=== PATIENT | male | born 1960 | race Caucasian/White ===

== ENCOUNTER 2020-09-04 17:00 | Emergency (ER) | payer BC, OTHER ==
[~2020-09-04] VITALS: Ht 182.9 cm; Wt 68.0 kg
[2020-09-04] MEDS ORDERED: NITROGLYCERIN 0.4 MG SL TABS BTL 25'S SL PRN (17:15)
[2020-09-04] MEDS ORDERED: ASPIRIN 81 MG CHEW (CHILDREN'S ASA) PO ONE (17:15)
[2020-09-04 17:16] LABS: BASOPHILS # (AUTO) 0.1 10^3/uL (0.0-0.1); BASOPHILS % (AUTO) 1 % (0-10); EOSINOPHILS # (AUTO) 0.2 10^3/uL (0.0-0.3); EOSINOPHILS % (AUTO) 1 % (0-10); HEMATOCRIT 42 % (40-54); HEMOGLOBIN 14.4 G/DL (13.3-17.7); LYMPHOCYTES # (AUTO) 4.3 X 10^3 (1.0-4.0); LYMPHOCYTES % (AUTO) 25 % (12-44); MEAN CORPUSCULAR HEMOGLOBIN 31 PG (25-34); MEAN CORPUSCULAR HGB CONC 35 G/DL (32-36); MEAN CORPUSCULAR VOLUME 90 FL (80-99); MONOCYTES # (AUTO) 2.1 X 10^3 (0.0-1.0); MONOCYTES % (AUTO) 12 % (0-12); NEUTROPHILS # (AUTO) 10.9 X 10^3 (1.8-7.8); NEUTROPHILS % (AUTO) 61 % (42-75); PLATELET COUNT 253 10^3/uL (130-400); WHITE BLOOD COUNT 17.7 10^3/uL (4.3-11.0)
[2020-09-04 17:27] LABS: INR 1.1 (0.8-1.4); PROTHROMBIN TIME PATIENT 14.5 SEC (12.2-14.7)
--- NOTE | 2020-09-04 17:33 | Diagnostic Imaging Report ---
INDICATION: Chest pain. COMPARISON STUDY: None. FINDINGS: Frontal view of the chest demonstrates the lungs to be clear. The heart, mediastinum, pulmonary vascularity and visualized bony thorax are normal. IMPRESSION: Normal chest. Dictated by: Dictated on workstation # [id number]
[2020-09-04 17:34] LABS: ALANINE AMINOTRANSFERASE 25 U/L (0-55); ALKALINE PHOSPHATASE 161 U/L (40-136); BILIRUBIN,TOTAL 0.9 MG/DL (0.1-1.0); BUN/CREATININE RATIO 6; CALCIUM 9.4 MG/DL (8.5-10.1); CARBON DIOXIDE 23 MMOL/L (21-32); CHLORIDE 105 MMOL/L (98-107); CREATININE SERUM 0.97 MG/DL (0.60-1.30); GFR ESTIMATED > 60; GLUCOSE 157 MG/DL (70-105)
[2020-09-04 17:35] LABS: ALBUMIN 3.9 GM/DL (3.2-4.5); LIPASE 3 U/L (8-78); TOTAL PROTEIN 7.1 GM/DL (6.4-8.2)
[2020-09-04 17:43] LABS: POTASSIUM 3.5 MMOL/L (3.6-5.0); SODIUM 140 MMOL/L (135-145)
--- NOTE | 2020-09-04 17:49 | ED Chest Pain ---
General Chief Complaint: Chest Pain Stated Complaint: CHEST PAIN Nursing Triage Note: Patient reports he woke at midnight last night with sharp pain in his mid-chest and left arm. He reports the pain is worse with deep breathing. Nursing Sepsis Screen: No Definite Risk Source: patient History of Present Illness Date Seen by Provider: Sep 04, 2020 Time Seen by Provider: 17:01 Initial Comments 59-year-old male ending with complaints of sharp pain in the middle of his chest going into his arm. He states this has been present since around midnight. He states the pain is worse with deep breaths. He also feels it was worse with laying down. He has a history of chronic pancreatitis but states this feels different. He has not taken any aspirin but did take some Tums which helps slightly. He states he had symptoms somewhat similar to this in the past with a episode of "walking pneumonia". He has not had any nausea or vomiting. He feels a little short of breath. Symptoms were worse when he tried to lay down Sunday came into the ED to be evaluated before coming later. He does not fo llow with any regular provider and does not take any medications on a daily basis. Severity/Quality: moderate Location: substernal, central Radiation: arms (left) Activities at Onset: sleep Prior CP/Workup: no prior chest pain, no prior cardiac workup ASA po RN ALLERGY: No NTG SL RN ALLERGY: No Associated Symptoms: No abdominal pain, No back pain, No diaphoresis, No dizziness, No edema, No fatigue, No fever/chills, No headache; heartburn; No nausea/vomiting, No rash; shortness of breath; No swelling/lump in chest, No syncope Allergies and Home Medications Allergies Coded Allergies: amoxicillin (Verified Allergy, Unknown, 09/04/20) Home Medications Azithromycin 250 Mg Tablet, 250 MG PO DAILY Prescribed by: ZACK MAURER on 09/04/201916 Pantoprazole Sodium 40 Mg Tablet.dr, 40 MG PO DAILY Prescribed by: ZACK MAURER on 09/04/201916 Prednisone 20 Mg Tab, 40 MG PO DAILY Prescribed by: ZACK MAURER on 09/04/201916 Patient Home Medication List Home Medication List Reviewed: Yes Review of Systems Review of Systems Constitutional: No chills, No fever EENTM: No Symptoms Reported Respiratory: See HPI Cardiovascular: See HPI Gastrointestinal: No Symptoms Reported Genitourinary: No Symptoms Reported Musculoskeletal: no symptoms reported Skin: no symptoms reported Psychiatric/Neurological: No Symptoms Reported Endocrine: No Symptoms Reported Hematologic/Lymphatic: Denies Blood Clots Past Eitiifx-Djqwcg-Oyexeg Hx Past Med/Social Hx: Reviewed Nursing Past Med/Soc Hx Patient Social History Alcohol Use: Denies Use Smoking Status: Current Everyday Smoker Type Used: Cigarettes 2nd Hand Smoke Exposure: No Recent Infectious Disease Expo: No Recent Hopitalizations: No Seasonal Allergies Seasonal Allergies: No Past Medical History Surgeries: Yes Appendectomy, Gallbladder Respiratory: No Cardiac: No Neurological: No Genitourinary: No Gastrointestinal: Yes Pancreatitis Musculoskeletal: No Endocrine: No HEENT: No Cancer: No Psychosocial: No Integumentary: No Blood Disorders: No Physical Exam Vital Signs Vital Signs - First Documented 09/04/20 17:06 Temp 37.7 Pulse 89 Resp 23 B/P (MAP) 172/93 (119) Pulse Ox 96 O2 Delivery Room Air Capillary Refill : Less Than 3 Seconds Height, Weight, BMI Height: '" Weight: lbs. oz. kg; 20.00 BMI Method: General Appearance: No Apparent Distress, WD/WN HEENT: Pharynx Normal Neck: Full Range of Motion, Normal Inspection, Non Tender, Supple Respiratory: Chest Non Tender, Lungs Clear, Normal Breath Sounds, No Accessory Muscle Use, No Respiratory Distress Cardiovascular: Regular Rate, Rhythm, Normal Peripheral Pulses Gastrointestinal: Normal Bowel Sounds, No Pulsatile Mass, Non Tender, Soft Rectal: Deferred Extremity: Normal Capillary Refill, Normal Inspection, Normal Range of Motion, Non Tender, No Calf Tenderness, No Pedal Edema Neurologic/Psychiatric: Alert, Oriented x3, computer systems information director II-XII Norm as Tested Skin: Normal Color, Warm/Dry Images 1 - reports pain throughout the center of chest and radiates to left arm but is not worse with palpation. worse with deep breaths Progress/Results/Core Measures Results/Orders Lab Results Laboratory Tests Test 09/04/20 17:10 Range/Units White Blood Count 17.7 H 4.3-11.0 10^3/uL Red Blood Count 4.65 4.35-5.85 10^6/uL Hemoglobin 14.4 13.3-17.7 G/DL Hematocrit 42 40-54 % Mean Corpuscular Volume 90 80-99 FL Mean Corpuscular Hemoglobin 31 25-34 PG Mean Corpuscular Hemoglobin Concent 35 32-36 G/DL Red Cell Distribution Width 12.7 10.0-14.5 % Platelet Count 253 130-400 10^3/uL Mean Platelet Volume 11.0 H 7.4-10.4 FL Immature Granulocyte % (Auto) 1 % Neutrophils (%) (Auto) 61 42-75 % Lymphocytes (%) (Auto) 25 12-44 % Monocytes (%) (Auto) 12 0-12 % Eosinophils (%) (Auto) 1 0-10 % Basophils (%) (Auto) 1 0-10 % Neutrophils # (Auto) 10.9 H 1.8-7.8 X 10^3 Lymphocytes # (Auto) 4.3 H 1.0-4.0 X 10^3 Monocytes # (Auto) 2.1 H 0.0-1.0 X 10^3 Eosinophils # (Auto) 0.2 0.0-0.3 10^3/uL Basophils # (Auto) 0.1 0.0-0.1 10^3/uL Immature Granulocyte # (Auto) 0.1 0.0-0.1 10^3/uL Neutrophils % (Manual) 61 % Lymphocytes % (Manual) 25 % Monocytes % (Manual) 13 % Eosinophils % (Manual) 1 % Prothrombin Time 14.5 12.2-14.7 SEC INR Comment 1.1 0.8-1.4 Activated Partial Thromboplast Time 29 24-35 SEC Sodium Level 140 135-145 MMOL/L Potassium Level 3.5 L 3.6-5.0 MMOL/L Chloride Level 105 98-107 MMOL/L Carbon Dioxide Level 23 21-32 MMOL/L Anion Gap 12 5-14 MMOL/L Blood Urea Nitrogen 6 L 7-18 MG/DL Creatinine 0.97 0.60-1.30 MG/DL Estimat Glomerular Filtration Rate > 60 BUN/Creatinine Ratio 6 Glucose Level 157 H 70-105 MG/DL Calcium Level 9.4 8.5-10.1 MG/DL Corrected Calcium 9.5 8.5-10.1 MG/DL Magnesium Level 2.0 1.6-2.4 MG/DL Total Bilirubin 0.9 0.1-1.0 MG/DL Aspartate Amino Transf (AST/SGOT) 22 5-34 U/L Alanine Aminotransferase (ALT/SGPT) 25 0-55 U/L Alkaline Phosphatase 161 H 40-136 U/L Troponin I < 0.30 <0.30 NG/ML Pro-B-Type Natriuretic Peptide 275.8 H <75.0 PG/ML Total Protein 7.1 6.4-8.2 GM/DL Albumin 3.9 3.2-4.5 GM/DL Lipase 3 L 8-78 U/L My Orders Orders - ZACK MAURER MD Cbc With Automated Diff (09/04/20 17:09) Magnesium (09/04/20 17:09) Chest 1 View Ap/Pa Only (09/04/20 17:09) Ekg Tracing (09/04/20 17:09) Comprehensive Metabolic Panel (09/04/20 17:09) Protime With Inr (09/04/20 17:09) Partial Thromboplastin Time (09/04/20 17:09) O2 (09/04/20 17:09) Monitor-Rhythm Ecg Trace Only (09/04/20 17:09) Aspirin Chewable Tablet (Baby Aspirin Ch (09/04/20 17:15) Nitroglycerin 0.4 Mg Btl 25's (Nitrostat (09/04/20 17:15) Ed Iv/Invasive Line Start (09/04/20 17:09) Lipase (09/04/20 17:09) Troponin I Fs (09/04/20 17:09) Probnp Fs (09/04/20 17:09) Manual Differential (09/04/20 17:10) Ct Angio Chest W (09/04/20 17:52) Iohexol Injection (Omnipaque 350 Mg/Ml 1 (09/04/20 18:00) Received Contrast (Hold Metformin- Contr (09/04/20 18:00) Sodium Chloride Flush (Catheter Flush Sy (09/04/20 18:00) Ns (Ivpb) (Sodium Chloride 0.9% Ivpb Bag (09/04/20 18:00) Pantoprazole Injection (Protonix Injecti (09/04/20 17:59) Ketorolac Injection (Toradol Injection) (09/04/20 17:59) Methylprednisolone Sod Succ (Solu-Medrol (09/04/20 19:12) Azithromycin Tablet (Zithromax Tablet) (09/04/20 19:12) Medications Given in ED Current Medications Medications Dose Ordered Sig/Eleanor Route Start Time Stop Time Status Last Admin Dose Admin Aspirin 324 mg ONCE ONCE PO 09/04/20 17:15 09/04/20 17:16 DC 09/04/20 17:18 324 MG Iohexol 100 ml ONCE ONCE IV 09/04/20 18:00 09/04/20 18:01 DC 09/04/20 18:19 100 ML Nitroglycerin 0.4 mg UD PRN SL 09/04/20 17:15 09/04/20 17:18 0.4 MG Sodium Chloride 10 ml NEEDED PRN IV 09/04/20 18:00 09/04/20 18:19 10 ML Sodium Chloride 100 ml ONCE ONCE IV 09/04/20 18:00 09/04/20 18:01 DC 09/04/20 18:19 100 ML Vital Signs/I&O 09/04/20 09/04/20 09/04/20 17:06 17:08 19:26 Temp 37.7 36.8 Pulse 89 68 Resp 23 14 B/P (MAP) 172/93 (119) 136/78 Pulse Ox 96 92 O2 Delivery Room Air Room Air Room Air Blood Pressure Mean: 119 Progress Progress Note #1: Progress Note Check labs, electrocardiogram, chest x-ray. Try aspirin and nitroglycerin for his pain symptoms. Differential diagnosis includes myocardial infarction, pneumonia, coronary syndrome, hypertension, pancreatitis, GERD with esophagitis, esophageal spasms Progress Note #2: Time: 17:50 Progress Note No acute abnormality on his electrocardiogram to recommend rushing to the cardiac cath lab technologist. His chest x-ray was clear. His labs show an elevated white blood cell count but normal troponin. Progress Note #3: Progress Note Since he had symptoms for over 17 hours he should have had an elevation in his troponin by now. If this was an acute coronary syndrome or myocardial infarction his troponin to be normal finding. He reports improvement with medication after the initial dose of nitroglycerin. However he states that he is at one officer to come back. Will give Protonix and Toradol. Obtain a CT angiogram to ensure that he has no signs of pulmonary embolism or mass or infiltrate. Progress Note #4: Progress Note Patient reports his pain is resolved with treatment. CT angiogram does not show any evidence of any blood clot. He is not having definite infiltrate. He does have some small pulmonary nodules. Radiology recommended having him get a recheck in 6 months. Counseled patient on results and follow-up plan. Will treat with a 5-day burst of steroids, Z-Dave, month supply of PPI. Counseled on follow-up and return precautions. Initial ECG Impression Date: Sep 04, 2020 Initial ECG Impression Time: 17:02 Initial ECG Rate: 90 Initial ECG Rhythm: Normal Sinus Initial ECG Comparisson: No Previous ECG Available Comment Normal sinus rhythm with a heart rate of 90 bpm. Left anterior fascicular block. LA interval 178 ms. QT interval 381 ms with a QTc interval [address] elevation. No prior tracing available for comparison. Diagnostic Imaging Diagonstic Imaging: Xray Plain Films/CT/US/NM/MRI: chest Comments [facility] [place], [place] NAME: NIKKY MORATAYA [employer] REC#: [id number] PT STATUS: REG ER : 1960 PHYSICIAN: ZACK MAURER MD ADMIT DATE: 09/04/20/ER FS Draft Date of Exam:09/04/20 CHEST 1 VIEW AP/PA ONLY INDICATION: Chest pain. COMPARISON STUDY: None. FINDINGS: Frontal view of the chest demonstrates the lungs to be clear. The heart, mediastinum, pulmonary vascularity and visualized bony thorax are normal. IMPRESSION: Normal chest. Dictated on workstation # [id number] Dict: 09/04/20 1725 Trans: 09/04/20 1732 [facility] [id number] Interpreted by: WINSOME GRIFFIN MD Electronically signed by: Reviewed: Reviewed by Me Diagonstic Imaging: CT Plain Films/CT/US/NM/MRI: chest Comments [facility] [place], [place] NAME: NIKKY MORATAYA [employer] REC#: [id number] PT STATUS: REG ER : 1960 PHYSICIAN: ZACK MAURER MD ADMIT DATE: 09/04/20/ER FS Signed Date of Exam:09/04/20 CT ANGIO CHEST W PROCEDURE: CT angiography of the chest with contrast. TECHNIQUE: Auto Exposure Controls were utilized during the CT exam to meet ALARA standards for radiation dose reduction. INDICATION: Chest pain since midnight. No previous history of cancer. Previous cholecystectomy and appendectomy. FINDINGS: No pulmonary embolus is present. Minimal vascular calcifications are present. Takeoff of the great vessels from the arch appears normal. Ascending aorta measures 3.1 cm. Proximal descending aorta measures 3.3 cm. The aorta just below this measures 2.4 cm. Mild emphysematous changes are present within the lungs. 4.7 mm pleural-based nodule seen posteriorly in the right upper lobe. In the superior segment of the right lower lobe there is an 8 mm pleural-based nodule. This does have a small central calcification consistent with granuloma. A couple of other small pleural-based nodules are also present. The osseous structures appear unremarkable. No abnormal adenopathy is present. The visualized portions of the abdomen appear normal. IMPRESSION: 1. No pulmonary embolus is present. 2. There is some ectasia of the proximal descending aorta. 3. Mild emphysematous change is present. 4. There are small pleural-based nodules. Recommend a six month follow-up. Dictated by: Dictated on workstation # [id number] Dict: 09/04/204 Trans: 09/04/201853 [facility] [id number] Interpreted by: WINSOME GRIFFIN MD Electronically signed by: WINSOME GRIFFIN MD 09/04/201853 Departure Impression Primary Impression: Pleuritic chest pain Additional Impressions: Pulmonary nodule seen on imaging study GERD with esophagitis Qualified Codes: K21.00 - Gastro-esophageal reflux disease with esophagitis, without bleeding Disposition: HOME, SELF-CARE Condition: Improved Departure-Patient Inst. Decision time for Depature: 19:14 Referrals: SINCERE JOHNSON MD, RICKY D DO UNKNOWN (PCP) [place] Care Phys[place] [facility] [place] Instructions: Chest Pain, Adult ED, Acid Reflux, Adult and Adolescent ED, Pulmonary Nodule Add. Discharge Instructions: Take the antibiotic and steroid to help cover for possible early lung infection and inflammation. Use the acid para operator to help for possible reflux and stomach and esophagus irritation. Follow up with clinic to get established for care. If you are not improving over the next 5-10 days they can see if you need additional testing and they can help set up a repeat CT scan in February to monitor and recheck the pulmonary nodules seen on CT scan today All discharge instructions reviewed with patient and/or family. Voiced understanding. Scripts Pantoprazole Sodium (Pantoprazole Sodium) 40 Mg Tablet.dr 40 MG PO DAILY for gastritis/esophagitis for 30 Days, #30 TAB 0 Refills Prov: ZACK MAURER MD 09/04/20 Prednisone (Prednisone) 20 Mg Tab 40 MG PO DAILY for 4 Days, #8 TAB 0 Refills Prov: ZACK MAURER MD 09/04/20 Azithromycin (Azithromycin) 250 Mg Tablet 250 MG PO DAILY for 4 Days, #4 TAB 0 Refills Prov: ZACK MAURER MD 09/04/20 ZACK MAURER MD Sep 04, 2020 17:49
[2020-09-04 17:53] LABS: EOSINOPHILS % (MANUAL) 1 %; LYMPHOCYTES % (MANUAL) 25 %; MONOCYTES % (MANUAL) 13 %; NEUTROPHILS % (MANUAL) 61 %
[2020-09-04] MEDS ORDERED: PANTOPRAZOLE 40 MG (PROTONIX) VIAL IV STA (17:59)
[2020-09-04] MEDS ORDERED: KETOROLAC 30 MG/ML VIAL IVP STA (17:59)
[2020-09-04] MEDS ORDERED: CATHETER FLUSH 10 ML SYR IV PRN (18:00)
[2020-09-04] MEDS ORDERED: IOHEXOL 350 MG/ML 100 ML (OMNIPAQUE 350) VIAL IV ONE (18:00)
[2020-09-04] MEDS ORDERED: HOLD METFORMIN - RECEIVED CONTRAST 20 ML VIAL IV SCH (18:00)
[2020-09-04] MEDS ORDERED: NS 100 ML (IVPB) BAG IV ONE (18:00)
--- NOTE | 2020-09-04 18:33 | Diagnostic Imaging Report ---
PROCEDURE: CT angiography of the chest with contrast. TECHNIQUE: Auto Exposure Controls were utilized during the CT exam to meet ALARA standards for radiation dose reduction. INDICATION: Chest pain since midnight. No previous history of cancer. Previous cholecystectomy and appendectomy. FINDINGS: No pulmonary embolus is present. Minimal vascular calcifications are present. Takeoff of the great vessels from the arch appears normal. Ascending aorta measures 3.1 cm. Proximal descending aorta measures 3.3 cm. The aorta just below this measures 2.4 cm. Mild emphysematous changes are present within the lungs. 4.7 mm pleural-based nodule seen posteriorly in the right upper lobe. In the superior segment of the right lower lobe there is an 8 mm pleural-based nodule. This does have a small central calcification consistent with granuloma. A couple of other small pleural-based nodules are also present. The osseous structures appear unremarkable. No abnormal adenopathy is present. The visualized portions of the abdomen appear normal. IMPRESSION: 1. No pulmonary embolus is present. 2. There is some ectasia of the proximal descending aorta. 3. Mild emphysematous change is present. 4. There are small pleural-based nodules. Recommend a six month follow-up. Dictated by: Dictated on workstation # [id number]
[2020-09-04] MEDS ORDERED: methylPREDNISolone 125 MG (Solu-MEDROL) VIAL IVP STA (19:12)
[2020-09-04] MEDS ORDERED: AZITHROMYCIN 250 MG TAB (ZITHROMAX) PO STA (19:12)
[2020-09-04] MEDS ORDERED: PRD20T PO (19:17)
[2020-09-04] MEDS ORDERED: PANT40TA52 PO (19:17)
[2020-09-04] MEDS ORDERED: AZIT250T12 PO (19:17)
[2020-09-04 19:26] VITALS: BP 136/78
== END 2020-09-04 19:26 | disposition home or self-care (01) ==
LOC: ER FS 17:02
DX: R07.81 Pleurodynia (principal); R91.1 Solitary pulmonary nodule; K21.00 Gastro-esophageal reflux disease with esophagitis, without bleeding; F17.210 Nicotine dependence, cigarettes, uncomplicated; Z79.52 Long term (current) use of systemic steroids
CPT/HCPCS: 36415; 71045; 71275; 80053; 83690; 83735; 83880; 84484; 85007; 85027; 85610; 85730; 93005; 93041

== ENCOUNTER 2021-11-14 17:55 | Emergency (ER) | payer BC ==
[~2021-11-14 17:55] MED LIST: AZIT250T12 PO; PANT40TA52 PO; PRD20T PO
[2021-11-14] MEDS ORDERED: FAMOTIDINE 20 MG (PEPCID) TABLET PO STA (18:05)
--- NOTE | 2021-11-14 18:11 | ED Chest Pain ---
General Chief Complaint: Chest Pain Stated Complaint: IRREGULAR HEARTRATE Source: patient Exam Limitations: no limitations History of Present Illness Date Seen by Provider: Nov 14, 2021 Time Seen by Provider: 17:58 Initial Comments 60-year-old male coming in due to chest pain as a referral from the urgent care. Started greater than 12 hours ago, constant, burning, better with Tums, no change with any type of activity. Has had pain like this before last year and came to the ER with a normal work-up as well. Has never followed up with a relations mgr. He had 1 baby aspirin today at the urgent care. He is otherwise denying any other acute complaints including shortness of breath, cough, hemoptysis, fever, abdominal pain, nausea, vomiting, diarrhea, weakness, numbness, headache, or any other concerns. Allergies and Home Medications Allergies Coded Allergies: amoxicillin (Verified Allergy, Unknown, 09/04/20) Patient Home Medication List Home Medication List Reviewed: Yes Azithromycin (Azithromycin) 250 Mg Tablet, 250 MG PO DAILY Prescribed by: ZACK MAURER on 09/04/201916 Pantoprazole Sodium (Pantoprazole Sodium) 40 Mg Tablet.dr, 40 MG PO DAILY Prescribed by: ZACK MAURER on 09/04/201916 Prednisone (Prednisone) 20 Mg Tab, 40 MG PO DAILY Prescribed by: ZACK MAURER on 09/04/201916 Review of Systems Review of Systems Constitutional: No fever EENTM: No Blurred Vision Respiratory: Denies Cough Cardiovascular: Chest Pain Gastrointestinal: Denies Abdominal Pain Genitourinary: Denies Burning Musculoskeletal: no symptoms reported Skin: no symptoms reported Psychiatric/Neurological: No Symptoms Reported Endocrine: No Symptoms Reported Hematologic/Lymphatic: No Symptoms Reported All Other Systems Reviewed Negative Unless Noted: Yes Past Jiqdaje-[id number]-Uehbof Hx Patient Social History Tobacco Use?: Yes Tobacco type used: Cigarettes Smoking Status: Heavy Tobacco Smoker Smokeless Tobacco Frequency: Never a User Use of E-Cig and/or Vaping dev: No Use of E-Cig and/or Vaping Rylan: Never a User Substance use?: No Alcohol Use?: Yes Alcohol Frequency: Once in a while Pt feels they are or have been: No Seasonal Allergies Seasonal Allergies: No Past Medical History Surgeries: Yes Appendectomy, Gallbladder Respiratory: No Cardiac: No Neurological: No Genitourinary: No Gastrointestinal: Yes Pancreatitis Musculoskeletal: No Endocrine: No HEENT: No Cancer: No Psychosocial: No Integumentary: No Blood Disorders: No Physical Exam Vital Signs Vital Signs - First Documented 11/14/21 18:00 Temp 36.8 Pulse 76 Resp 23 B/P (MAP) 149/78 (101) Pulse Ox 97 O2 Delivery Room Air Capillary Refill : Less Than 3 Seconds Height, Weight, BMI Height: '" Weight: lbs. oz. kg; 20.00 BMI Method: General Appearance: No Apparent Distress, WD/WN HEENT: PERRL/EOMI, Normal ENT Inspection, Pharynx Normal Neck: Full Range of Motion, Normal Inspection, Non Tender, Supple Respiratory: Chest Non Tender, Lungs Clear, Normal Breath Sounds, No Accessory Muscle Use, No Respiratory Distress Cardiovascular: Regular Rate, Rhythm, No Edema, Normal Peripheral Pulses Gastrointestinal: Normal Bowel Sounds, Non Tender, Soft; No Distended, No Guarding Extremity: Normal Capillary Refill, Normal Inspection, Normal Range of Motion, Non Tender, No Calf Tenderness, No Pedal Edema Neurologic/Psychiatric: Alert, No Motor/Sensory Deficits, Normal Mood/Affect Skin: Normal Color, Warm/Dry Lymphatic: No Adenopathy Progress/Results/Core Measures Results/Orders Lab Results Laboratory Tests Test 11/14/21 18:07 Range/Units White Blood Count 15.0 H 4.3-11.0 10^3/uL Red Blood Count 4.76 4.30-5.52 10^6/uL Hemoglobin 15.0 13.3-17.7 g/dL Hematocrit 44 40-54 % Mean Corpuscular Volume 92 80-99 fL Mean Corpuscular Hemoglobin 32 25-34 pg Mean Corpuscular Hemoglobin Concent 34 32-36 g/dL Red Cell Distribution Width 12.6 10.0-14.5 % Platelet Count 249 130-400 10^3/uL Mean Platelet Volume 11.0 9.0-12.2 fL Immature Granulocyte % (Auto) 0 % Neutrophils (%) (Auto) 63 42-75 % Lymphocytes (%) (Auto) 24 12-44 % Monocytes (%) (Auto) 11 0-12 % Eosinophils (%) (Auto) 1 0-10 % Basophils (%) (Auto) 1 0-10 % Neutrophils # (Auto) 9.4 H 1.8-7.8 10^3/uL Lymphocytes # (Auto) 3.5 1.0-4.0 10^3/uL Monocytes # (Auto) 1.7 H 0.0-1.0 10^3/uL Eosinophils # (Auto) 0.2 0.0-0.3 10^3/uL Basophils # (Auto) 0.1 0.0-0.1 10^3/uL Immature Granulocyte # (Auto) 0.1 0.0-0.1 10^3/uL Neutrophils % (Manual) 55 % Lymphocytes % (Manual) 33 % Monocytes % (Manual) 10 % Atypical Lymphocytes 2 % Platelet Estimate NORMAL Blood Morphology Comment NORMAL Prothrombin Time 13.2 12.2-14.7 SEC INR Comment 1.0 0.8-1.4 Activated Partial Thromboplast Time 28 24-35 SEC Sodium Level 142 135-145 MMOL/L Potassium Level 3.6 3.6-5.0 MMOL/L Chloride Level 104 98-107 MMOL/L Carbon Dioxide Level 27 21-32 MMOL/L Anion Gap 11 5-14 MMOL/L Blood Urea Nitrogen 7 7-18 MG/DL Creatinine 0.99 0.60-1.30 MG/DL Estimat Glomerular Filtration Rate 87 BUN/Creatinine Ratio 7 Glucose Level 112 H 70-105 MG/DL Calcium Level 10.0 8.5-10.1 MG/DL Corrected Calcium 9.8 8.5-10.1 MG/DL Magnesium Level 1.9 1.6-2.4 MG/DL Total Bilirubin 0.5 0.1-1.0 MG/DL Aspartate Amino Transf (AST/SGOT) 20 5-34 U/L Alanine Aminotransferase (ALT/SGPT) 40 0-55 U/L Alkaline Phosphatase 174 H 40-136 U/L Troponin I < 0.30 <0.30 NG/ML Pro-B-Type Natriuretic Peptide 342.0 H <125.0 PG/ML Total Protein 7.2 6.4-8.2 GM/DL Albumin 4.3 3.2-4.5 GM/DL Lipase 4 L 8-78 U/L My Orders Orders - MARYSOL RED MD Lidocaine 2% Viscous 15 Ml (Xylocaine Vi (11/14/21 18:15) Famotidine Tablet (Pepcid Tablet) (11/14/21 18:05) Antacid Suspension (Mylanta Suspension (11/14/21 18:15) Ed Iv/Invasive Line Start (11/14/21 18:05) Cbc With Automated Diff (11/14/21 18:05) Magnesium (11/14/21 18:05) Chest 1 View Ap/Pa Only (11/14/21 18:05) Ekg Tracing (11/14/21 18:05) Comprehensive Metabolic Panel (11/14/21 18:05) Protime With Inr (11/14/21 18:05) Partial Thromboplastin Time (11/14/21 18:05) O2 (11/14/21 18:05) Monitor-Rhythm Ecg Trace Only (11/14/21 18:05) Aspirin Chewable Tablet (Baby Aspirin Ch (11/14/21 18:15) Lipase (11/14/21 18:05) Troponin I Fs (11/14/21 18:05) Probnp Fs (11/14/21 18:05) Manual Differential (11/14/21 18:07) Medications Given in ED Current Medications Medications Dose Ordered Sig/Eleanor Route Start Time Stop Time Status Last Admin Dose Admin Al Hydrox/Mg Hydrox/Simethicone 30 ml ONCE ONCE PO 11/14/21 18:15 11/14/21 18:16 DC 11/14/21 18:19 30 ML Aspirin 243 mg ONCE ONCE PO 11/14/21 18:15 11/14/21 18:16 DC 11/14/21 18:19 243 MG Lidocaine HCl 15 ml ONCE ONCE PO 11/14/21 18:15 11/14/21 18:16 DC 11/14/21 18:19 15 ML Vital Signs/I&O 11/14/21 11/14/21 18:00 18:00 Temp 36.8 Pulse 76 Resp 23 B/P (MAP) 149/78 (101) Pulse Ox 97 O2 Delivery Room Air Room Air Progress Progress Note : Progress Note 60-year-old male with above history coming in due to burning chest discomfort. ABCs were intact and vitals were stable on presentation. Physical exam showing with no focal abnormalities. EKG appears similar to prior with no acute ischemic changes. An IV was placed and basic labs were obtained including cardiac biomarkers. Troponin is negative, and given he has had pain for more than 12 hours straight this is reassuring and unlikely to be ACS. His heart rate is low, oxygen is normal, he is not exhibiting any signs of DVT. He is otherwise low risk for PE per [place] criteria. Similar symptoms to what he had last year and he had a CTA chest at that time which was normal. Chest x-ray clear. Symptoms resolved with a GI cocktail here. I think it is unlikely to have anything life-threatening at this time. I will have him follow-up with cardiology as an outpatient. Initial ECG Impression Date: Nov 14, 2021 Initial ECG Impression Time: 18:02 Initial ECG Rate: 77 Initial ECG Rhythm: Normal Sinus Comment Narrow QRS, no significant ST changes or T wave abnormalities, left anterior fascicular block, appears similar to prior EKG Diagnostic Imaging Diagonstic Imaging: Xray (chest) Comments [facility] [place], [place] NAME: NIKKY [facility]A [facility] REC#: [id number] PT STATUS: REG ER : 1960 PHYSICIAN: MARYSOL RED MD ADMIT DATE: 11/14/21/ER FS Draft Date of Exam:11/14/21 CHEST 1 VIEW AP/PA ONLY EXAMINATION: Chest, one view. HISTORY: Chest pain. COMPARISON: 09/04/2020. FINDINGS: The lungs are clear without edema or pneumonia. No pleural effusion or pneumothorax. Heart size is normal. IMPRESSION: 1. Clear lungs. Dictated on workstation # [id number] Dict: 11/14/211813 Trans: 11/14/211815 [id number] Interpreted by: JAGRUTI LORENZO MD Electronically signed by: Departure Impression Primary Impression: Chest pain Qualified Codes: R07.82 - Intercostal pain Disposition: 01 HOME, SELF-CARE Condition: Stable Departure-Patient Inst. Decision time for Depature: 18:58 Referrals: NO,LOCAL PHYSICIAN (PCP) Primary Care Physician ALFONZO BALDERRAMA JR, MD Patient Instructions: Chest Pain (DC) Add. Discharge Instructions: It does not appear like you are having a heart attack today, but I would do want you to follow-up with a relations mgr soon as possible. It is okay to work if your pain has been consistent and no different from today, as long as the pain is not getting worse with activity. The pain changes, becomes more severe, or is getting worse with activity I would want you to go back to the ER. I do r ecommend taking a baby aspirin daily from now on which you can buy [id number]. Work/School Note: Work Release Form Date Seen in the Emergency Department: Nov 14, 2021 Return to Work: Nov 15, 2021 Restrictions: No Restrictions Other Restrictions Listed Below: Okay to work with discomfort as long as pain not worse with activity MARYSOL RED MD Nov 14, 2021 18:11
[2021-11-14 18:13] LABS: BASOPHILS # (AUTO) 0.1 10^3/uL (0.0-0.1); BASOPHILS % (AUTO) 1 % (0-10); EOSINOPHILS # (AUTO) 0.2 10^3/uL (0.0-0.3); EOSINOPHILS % (AUTO) 1 % (0-10); HEMATOCRIT 44 % (40-54); LYMPHOCYTES # (AUTO) 3.5 10^3/uL (1.0-4.0); LYMPHOCYTES % (AUTO) 24 % (12-44); MEAN CORPUSCULAR HEMOGLOBIN 32 pg (25-34); MEAN CORPUSCULAR HGB CONC 34 g/dL (32-36); MEAN CORPUSCULAR VOLUME 92 fL (80-99); MONOCYTES # (AUTO) 1.7 10^3/uL (0.0-1.0); MONOCYTES % (AUTO) 11 % (0-12); NEUTROPHILS # (AUTO) 9.4 10^3/uL (1.8-7.8); NEUTROPHILS % (AUTO) 63 % (42-75); PLATELET COUNT 249 10^3/uL (130-400)
[2021-11-14] MEDS ORDERED: ANTACID SUSP 30 ML UDC (MYLANTA) PO ONE (18:15)
[2021-11-14] MEDS ORDERED: ASPIRIN 81 MG CHEW (CHILDREN'S ASA) PO ONE (18:15)
[2021-11-14] MEDS ORDERED: LIDOCAINE 2% VISCOUS 15 ML UDC PO ONE (18:15)
--- NOTE | 2021-11-14 18:17 | Diagnostic Imaging Report ---
EXAMINATION: Chest, one view. HISTORY: Chest pain. COMPARISON: 09/04/2020. FINDINGS: The lungs are clear without edema or pneumonia. No pleural effusion or pneumothorax. Heart size is normal. IMPRESSION: 1. Clear lungs. Dictated by: Dictated on workstation # [email or web address]
[2021-11-14 18:30] LABS: PROTHROMBIN TIME PATIENT 13.2 SEC (12.2-14.7)
[2021-11-14 18:37] LABS: ALBUMIN 4.3 GM/DL (3.2-4.5); BILIRUBIN,TOTAL 0.5 MG/DL (0.1-1.0); CREATININE SERUM 0.99 MG/DL (0.60-1.30); MAGNESIUM 1.9 MG/DL (1.6-2.4); POTASSIUM 3.6 MMOL/L (3.6-5.0); TOTAL PROTEIN 7.2 GM/DL (6.4-8.2)
[2021-11-14 18:47] LABS: NEUTROPHILS % (MANUAL) 55 %
[2021-11-14 18:48] LABS: ATYPICAL LYMPHOCYTES 2 %; LYMPHOCYTES % (MANUAL) 33 %; MONOCYTES % (MANUAL) 10 %; PLATELET ESTIMATE NORMAL; RBC MORPH NORMAL
[2021-11-14 19:07] VITALS: BP 157/89
== END 2021-11-14 19:07 | disposition home or self-care (01) ==
LOC: EDUNIT# 17:55 → ER FS 17:56
DX: R07.89 Other chest pain (principal); F17.210 Nicotine dependence, cigarettes, uncomplicated; Z28.310 Unvaccinated for COVID-19
CPT/HCPCS: 36415; 71045; 80053; 83690; 83735; 83880; 84484; 85007; 85027; 85610; 85730; 93005; 93041

== ENCOUNTER → 2021-11-22 | Outpatient (CLI) | payer BC | LOC: CARDFS 14:34 | PROVIDERS: ATTEND Internal Medicine Cardiovascular Disease | DX: I35.8 Other nonrheumatic aortic valve disorders (principal); I51.7 Cardiomegaly | CPT/HCPCS: 93306 ==

== ENCOUNTER → 2021-12-01 | Outpatient (CLI) | payer BC ==
[~2021-12-01] VITALS: Ht 182 cm; Wt 68.0 kg
[~2021-12-01] MED LIST changes: +CATHETER FLUSH 10 ML SYR IVP PRN
[2021-12-01 08:56] VITALS: BP 140/84
--- NOTE | 2021-12-01 15:00 | NUCLEAR STRESS TEST ---
TREADMILL NUCLEAR STRESS TEST Date of procedure: 12/01/2021. Primary care provider: No local physician. Admitting physician: Barry Joy Jr., MD. INDICATION: Chest pain. BASELINE ELECTROCARDIOGRAM: Sinus bradycardia at 54 bpm with first-degree AV block, left anterior hemiblock and incomplete right bundle branch block. STRESS TEST PROCEDURE: The patient was exercised for a total of 11 minutes and 0 seconds of the standard Cesar protocol achieving a maximum MET level of 12.1. The resting heart rate was 54 bpm and the peak heart rate was 149 bpm, which represents 94% of the maximum predicted heart rate. The resting blood pressure was 140/84 mmHg and the peak blood pressure was 197/84 mmHg. This represents a normal heart rate and a normal blood pressure response to exercise. The test was stopped due to target heart rate attained. There was no chest discomfort during the test. There were no arrhythmias during the test. There were no significant stress induced electrocardiogram changes. The patient exhibited excellent exercise capacity for age. NUCLEAR PROCEDURE: The patient was administered 10.6 mCi of intravenous technetium 99m Tetrofosmin at rest for the rest images. The patient was subsequently administered 30.3 mCi of intravenous technetium 99 M Tetrofosmin at peak stress for the stress images. Following an appropriate wait after each injection, imaging was obtained. The images were subsequently processed and reformatted in the usual views. Gated imaging was obtained. The image quality was adequate with a mild degree of gastrointestinal attenuation artifact. CT attenuation correction was used as a adjunct to standard imaging. Both the corrected and uncorrected images were reviewed for interpretation. NUCLEAR RESULTS: There was normal myocardial perfusion in all segments without evidence of infarction or ischemia. There was normal left ventricular chamber size with an end-diastolic volume of 94 mL and an end-systolic volume of 35 mL. There was no evidence of transient ischemic dilatation. The TID ratio was 1.16. There was normal wall motion in all segments with a calculated ejection fract ion of 63%. IMPRESSION: 1. Normal heart rate and blood pressure response to exercise. 2. There was no exercise-induced chest discomfort, arrhythmias, or electrocardiogram changes during the test. 3. The patient exhibited excellent exercise capacity for age at 11 minutes of the Cesar protocol. 4. There was normal myocardial perfusion in all segments without evidence of infarction or ischemia. 5. There was normal wall motion in all segments with a calculated ejection fraction of 63%. Certain portions of this document may have been dictated utilizing voice recognition technology. Inherent to this technology, typographical and g rammatical errors may exist. As much as I am diligent to identify and correct these mistakes, some errors may remain in the document. BARRY JOY JR, MD Dec 01, 2021 15:00
== END ==
LOC: CARD 08:00
PROVIDERS: ATTEND Internal Medicine Cardiovascular Disease
DX: R07.9 Chest pain, unspecified (principal)
CPT/HCPCS: 78452; 93017; A9502

== ENCOUNTER 2022-08-12 04:05 | Emergency (ER) | payer BC ==
[~2022-08-12] VITALS: Ht 182.8 cm; Wt 68.0 kg
[~2022-08-12 04:05] MED LIST changes: -CATHETER FLUSH 10 ML SYR IVP PRN
[2022-08-12] MEDS ORDERED: ASPIRIN 81 MG CHEW (CHILDREN'S ASA) PO ONE (04:15)
[2022-08-12] MEDS ORDERED: PANTOPRAZOLE 40 MG (PROTONIX) VIAL IV STA (04:17)
[2022-08-12] MEDS ORDERED: KETOROLAC 15 MG/ML VIAL IVP STA (04:17)
[2022-08-12 04:22] LABS: BASOPHILS # (AUTO) 0.1 10^3/uL (0.0-0.1); BASOPHILS % (AUTO) 1 % (0-10); EOSINOPHILS # (AUTO) 0.3 10^3/uL (0.0-0.3); EOSINOPHILS % (AUTO) 1 % (0-10); HEMATOCRIT 46 % (40-54); HEMOGLOBIN 15.5 g/dL (13.3-17.7); LYMPHOCYTES # (AUTO) 2.9 10^3/uL (1.0-4.0); LYMPHOCYTES % (AUTO) 16 % (12-44); MEAN CORPUSCULAR HEMOGLOBIN 32 pg (25-34); MEAN CORPUSCULAR HGB CONC 34 g/dL (32-36); MEAN CORPUSCULAR VOLUME 95 fL (80-99); MEAN PLATELET VOLUME 10.4 fL (9.0-12.2); MONOCYTES # (AUTO) 1.5 10^3/uL (0.0-1.0); MONOCYTES % (AUTO) 8 % (0-12); NEUTROPHILS # (AUTO) 13.9 10^3/uL (1.8-7.8); NEUTROPHILS % (AUTO) 74 % (42-75); PLATELET COUNT 247 10^3/uL (130-400); WHITE BLOOD COUNT 18.9 10^3/uL (4.3-11.0)
--- NOTE | 2022-08-12 04:23 | ED Chest Pain ---
General Chief Complaint: Chest Pain Stated Complaint: CHEST PAIN Source: patient, old records (Reviewed cardiology notes with Dr. Joy from December 01, 2021 when patient had a nuclear treadmill stress test that did not show any ischemia.) History of Present Illness Date Seen by Provider: August 12, 2022 Time Seen by Provider: 04:10 Initial Comments 61-year-old male presenting with complaints of substernal chest pain that is sharp in nature and worse with deep breaths. He states that he woke up with the pain around 2 AM. He did not take anything at home for the pain. Its been constant since onset. He had something similar a year or 2 ago and reports that it was acid reflux. He did not try taking anything for acid reflux at home. He denies any other medical problems. He had followed up and had a stress test and some cardiology testing after his last ER visit and was told that that all was okay. He denies taking any chronic medications. He says he has an allergy to penicillin. He denies eating anything different that might of triggered heartburn. He denies having nausea, vomiting, shortness of breath, cough, fever, chills. He denies any radiation of the pain. He is rating the pain as a 7 out of 10 and again sharp in nature worse with deep breaths. Timing/Duration: 1-3 hours Severity/Quality: moderate, sharp Location: substernal, central Radiation: no radiation Activities at Onset: sleep Modifying Factors: worse with breathing (Deep breaths makes the sharp pain worse) ASA po LEAD SETTER: No NTG SL LEAD SETTER: No Associated Symptoms: No abdominal pain, No back pain, No diaphoresis, No dizziness, No edema, No fatigue, No fever/chills, No headache, No heartburn, No nausea/vomiting, No rash, No shortness of breath, No swelling/lump in chest, No syncope Allergies and Home Medications Allergies Coded Allergies: amoxicillin (Verified Allergy, Unknown, 09/04/20) Patient Home Medication List Home Medication List Reviewed: Yes Azithromycin (Azithromycin) 250 Mg Tablet, 250 MG PO DAILY Prescribed by: ZACK MAURER on 09/04/201916 Azithromycin (Azithromycin) 250 Mg Tablet, 250 MG PO UD Prescribed by: ZACK MAURER on 08/12/22 06 Pantoprazole Sodium (Pantoprazole Sodium) 40 Mg Tablet.dr, 40 MG PO DAILY Prescribed by: ZACK MAURER on 09/04/201916 Pantoprazole Sodium (Pantoprazole Sodium) 40 Mg Tablet.dr, 40 MG PO DAILY Prescribed by: ZACK MAURER on 08/12/22604 Prednisone (Prednisone) 20 Mg Tab, 40 MG PO DAILY Prescribed by: ZACK MAURER on 09/04/201916 Review of Systems Review of Systems Constitutional: No chills, No fever EENTM: No Symptoms Reported Respiratory: No Symptoms Reported Cardiovascular: See HPI Gastrointestinal: No Symptoms Reported Genitourinary: No Symptoms Reported Musculoskeletal: no symptoms reported Skin: no symptoms reported Psychiatric/Neurological: No Symptoms Reported Past [id number] Hx Patient Social History Tobacco Use?: Yes Tobacco type used: Cigarettes Seasonal Allergies Seasonal Allergies: No Past Medical History Surgeries: Yes Appendectomy, Gallbladder Respiratory: No Cardiac: No Neurological: No Genitourinary: No Gastrointestinal: Yes Pancreatitis Musculoskeletal: No Endocrine: No HEENT: No Cancer: No Psychosocial: No Integumentary: No Blood Disorders: No Physical Exam Vital Signs Vital Signs - First Documented 08/12/22 04:12 Temp 36.8 Pulse 83 Resp 18 B/P (MAP) 175/73 (107) Pulse Ox 95 O2 Delivery Room Air Capillary Refill : Height, Weight, BMI Height: '" Weight: lbs. oz. kg; 20.52 BMI Method: General Appearance: No Apparent Distress, Anxious HEENT: Pharynx Normal Neck: Full Range of Motion, Normal Inspection, Non Tender, Supple Respiratory: Chest Non Tender, Lungs Clear, Normal Breath Sounds, No Accessory Muscle Use, No Respiratory Distress Cardiovascular: Regular Rate, Rhythm, Normal Peripheral Pulses Gastrointestinal: Normal Bowel Sounds, No Pulsatile Mass, Non Tender, Soft Rectal: Deferred Extremity: Normal Capillary Refill, Normal Inspection, No Pedal Edema Neurologic/Psychiatric: Alert, Oriented x3, social worker II-XII Norm as Tested Skin: Normal Color, Warm/Dry Progress/Results/Core Measures Results/Orders Lab Results Laboratory Tests Test 08/12/22 04:20 08/12/22 06:00 Range/Units White Blood Count 18.9 H 4.3-11.0 10^3/uL Red Blood Count 4.85 4.30-5.52 10^6/uL Hemoglobin 15.5 13.3-17.7 g/dL Hematocrit 46 40-54 % Mean Corpuscular Volume 95 80-99 fL Mean Corpuscular Hemoglobin 32 25-34 pg Mean Corpuscular Hemoglobin Concent 34 32-36 g/dL Red Cell Distribution Width 12.6 10.0-14.5 % Platelet Count 247 130-400 10^3/uL Mean Platelet Volume 10.4 9.0-12.2 fL Immature Granulocyte % (Auto) 1 % Neutrophils (%) (Auto) 74 42-75 % Lymphocytes (%) (Auto) 16 12-44 % Monocytes (%) (Auto) 8 0-12 % Eosinophils (%) (Auto) 1 0-10 % Basophils (%) (Auto) 1 0-10 % Neutrophils # (Auto) 13.9 H 1.8-7.8 10^3/uL Lymphocytes # (Auto) 2.9 1.0-4.0 10^3/uL Monocytes # (Auto) 1.5 H 0.0-1.0 10^3/uL Eosinophils # (Auto) 0.3 0.0-0.3 10^3/uL Basophils # (Auto) 0.1 0.0-0.1 10^3/uL Immature Granulocyte # (Auto) 0.1 0.0-0.1 10^3/uL Neutrophils % (Manual) 79 % Lymphocytes % (Manual) 16 % Monocytes % (Manual) 4 % Eosinophils % (Manual) 1 % Prothrombin Time 13.4 12.2-14.7 SEC INR Comment 1.0 0.8-1.4 Activated Partial Thromboplast Time 28 24-35 SEC D-Dimer 0.22 0.00-0.49 UG/ML Sodium Level 136 135-145 MMOL/L Potassium Level 4.0 3.6-5.0 MMOL/L Chloride Level 104 98-107 MMOL/L Carbon Dioxide Level 23 21-32 MMOL/L Anion Gap 9 5-14 MMOL/L Blood Urea Nitrogen 7 7-18 MG/DL Creatinine 1.09 0.60-1.30 MG/DL Estimat Glomerular Filtration Rate 77 BUN/Creatinine Ratio 6 Glucose Level 187 H 70-105 MG/DL Calcium Level 9.4 8.5-10.1 MG/DL Corrected Calcium 9.4 8.5-10.1 MG/DL Magnesium Level 2.1 1.6-2.4 MG/DL Total Bilirubin 0.7 0.1-1.0 MG/DL Aspartate Amino Transf (AST/SGOT) 22 5-34 U/L Alanine Aminotransferase (ALT/SGPT) 29 0-55 U/L Alkaline Phosphatase 176 H 40-136 U/L Troponin I < 0.30 < 0.30 <0.30 NG/ML Pro-B-Type Natriuretic Peptide 246.8 H <125.0 PG/ML Total Protein 7.0 6.4-8.2 GM/DL Albumin 4.0 3.2-4.5 GM/DL Lipase 4 L 8-78 U/L My Orders Orders - ZACK MAURER MD Cbc With Automated Diff (08/12/22 04:10) Magnesium (08/12/22 04:10) Chest 1 View Ap/Pa Only (08/12/22 04:10) Ekg Tracing (08/12/22 04:10) Comprehensive Metabolic Panel (08/12/22 04:10) Protime With Inr (08/12/22 04:10) Partial Thromboplastin Time (08/12/22 04:10) O2 (08/12/22 04:10) Monitor-Rhythm Ecg Trace Only (08/12/22 04:10) Aspirin Chewable Tablet (Baby Aspirin Ch (08/12/22 04:15) Ed Iv/Invasive Line Start (08/12/22 04:10) Lipase (08/12/22 04:10) Troponin I Fs (08/12/22 04:10) Probnp Fs (08/12/22 04:10) Pantoprazole Injection (Protonix Injecti (08/12/22 04:17) Ketorolac Injection (Toradol Injection) (08/12/22 04:17) Manual Differential (08/12/22 04:20) Fibrin Degradation Products (08/12/22 04:38) Lidocaine 2% Viscous 15 Ml (Xylocaine Vi (08/12/22 05:00) Antacid Suspension (Mylanta Suspension (08/12/22 05:00) Troponin I Fs (08/12/22 05:45) Medications Given in ED Current Medications Medications Dose Ordered Sig/Eleanor Route Start Time Stop Time Status Last Admin Dose Admin Al Hydrox/Mg Hydrox/Simethicone 30 ml ONCE ONCE PO 08/12/22 05:00 08/12/22 05:02 DC 08/12/22 05:00 30 ML Aspirin 324 mg ONCE ONCE PO 08/12/22 04:15 08/12/22 04:16 DC 08/12/22 04:17 324 MG Lidocaine HCl 15 ml ONCE ONCE PO 08/12/22 05:00 08/12/22 05:02 DC 08/12/22 04:59 15 ML Vital Signs/I&O 08/12/22 08/12/22 04:12 06:45 Temp 36.8 Pulse 83 81 Resp 18 20 B/P (MAP) 175/73 (107) 138/76 Pulse Ox 95 95 O2 Delivery Room Air Room Air Progress Progress Note #1: Progress Note Potential diagnosis of myocardial infarction, acute coronary syndrome, pneumonia, pleurisy, lung mass, GERD, esophageal spasms, gastritis, pancreatitis. Placed on cardiac telemetry monitoring and initially my interpretation was that he has a regular heart rate in the 80s without ST elevation. Obtain peripheral IV access and send blood work for complete blood count, comprehensive metabolic profile, coagulation factors, magnesium, lipase, troponin, proBNP. Electrocardiogram to further evaluate his heart rate and rhythm. Chest x-ray to look for pathology in his chest to be causing his symptoms. Administer Toradol 15 mg IV for the sharp chest pain, Protonix 40 mg IV for possible gastritis, aspirin 324 mg p.o. x1 for possible acute coronary syndrome. Progress Note #2: Time: 04:34 Progress Note My personal review and interpretation of his 1 view chest x-ray is no acute infiltrate or effusion. Heart size appears normal. Overall appears similar to prior chest x-ray on November 14, 2021. Progress Note #3: Time: 05:00 Progress Note Pt reported he still had pain so GI cocktail ordered since he had resolution of pain with prior ED visit in October 2021. Coagulation factors and Comprehensive metabolic profile are not showing coagulopathy or acute electrolyte imbalance to account for his complaint of sharp chest pain. Add D dimer to lab to help screen for PE although pt has no risk factors for this. He does have elevated WBC count to 18.9 but no left shift. I did not appreciate an infiltrate on his CXR and he denies coughing or shortness of breath. This may be more stress reaction or viral illness. Troponin is negative at <0.3. Progress Note #4: Time: 05:45 Progress Note D-dimer was negative for screening for PE he has had came back not elevated at 0.22. On recheck the patient he reports that after drinking the GI cocktail his pain efforts resolved. He continues to deny any cough or infectious symptoms that might contribute to his elevated white blood cell count. We will repeat the troponin at 6 AM and provided this is still negative we will plan on discharging to home with return precautions and prescription for acid fisher scallop. 0559 When nurse went to redraw Troponin he now states he has a little sharp chest pain with deep breath still but otherwise is not having pain. In light of this and his elevated WBC count will order a Z pack for possible atypical pneumonia, provided his troponin is still negative. Progress Note #5: Time: 06:28 Progress Note Repeat troponin is still negative at less than 0.3. Patient continues to be pain-free other than when he takes a deep breath. Since having the GI cocktail he has had some intermittent coughing here in the ED but continues to deny having coughing prior to that. We will proceed with plan of discharge to home with encouraged follow-up for elevated glucose as well as establishing care about recurrent chest pain symptoms. This might be peptic ulcer disease or reflux. Prescription for Protonix 40 mg p.o. daily for a month. Also sent a prescription for a Z-Dave 500 mg of azithromycin today and then 250 mg p.o. daily for 4 more days in case he had an atypical pneumonia or walking type pneumonia since there was no infiltrate on the chest x-ray but he did have a [facility] blood cell count of 18.9 thousand. Encourage fluids and rest. Return if having worsening symptoms or more complaints and concerns Initial ECG Impression Date: August 12, 2022 Initial ECG Impression Time: 04:14 Initial ECG Rate: 84 Initial ECG Rhythm: Normal Sinus Initial ECG Comparisson: Unchanged (11/14/2021) Comment On my personal interpretation and review his electrocardiogram shows sinus rhythm with occasional PVCs and a heart rate of 84 bpm. GA interval 174 ms. Incomplete right bundle branch block. Left anterior fascicular block. QT interval 405 ms with a QTc interval [address] elevation. Overall appears similar to prior tracing from November 14, 2021. Diagnostic Imaging Diagonstic Imaging: Xray Plain Films/CT/US/NM/MRI: chest Comments NAME: NIKKY MORATAYA [facility] REC#: [id number] PT STATUS: REG ER : 1960 PHYSICIAN: ZACK MAURER MD ADMIT DATE: 08/12/22/ER FS Draft Date of Exam:08/12/22 CHEST 1 VIEW AP/PA ONLY HISTORY: Chest pain TECHNIQUE: Frontal view of the chest COMPARISON: 11/14/2021 FINDINGS: Lung volumes are normal. No consolidation is seen. There is no pleural effusion or pneumothorax. The cardiac silhouette is normal in size. IMPRESSION: 1. No acute pulmonary abnormality. Dictated on workstation # [id number] Dict: 08/12/22 0554 Trans: 08/12/22 0602 CROW [id number] Interpreted by: JESSE RODNEY MD Electronically signed by: Reviewed: Reviewed by Me (I reviewed the radiologist report at 0606) Departure Impression Primary Impression: Pleuritic chest pain Additional Impression: Elevated glucose Disposition: HOME, SELF-CARE Condition: Improved Departure-Patient Inst. Decision time for Depature: 06:31 Referrals: NO,LOCAL PHYSICIAN (PCP) Primary Care Physician [facility] Patient Instructions: Chest Pain, Adult ED, Pleuritic Chest Pain ED, Prediabetes (DC) Add. Discharge Instructions: Stay well hydrated and drink plenty of water. Take the full course of antibiotic to treat for possible atypical or walking pneumonia with your sharp pain when you take a deep breath and having an elevated White Blood Cell count on your tests tonight. Take the acid reducing medicine and establish care with a primary care provider to follow up on your possible acid reflux as well as elevated sugar level on your blood work tonight. You could call the [facility] clinic at [phone] to get established with care. All discharge instructions reviewed with patient and/or family. Voiced understanding. Scripts Azithromycin (Azithromycin) 250 Mg Tablet 250 MG PO UD for 5 Days, #6 TAB 0 Refills TAKE 2 TABLETS ON DAY ONE THEN TAKE 1 TABLET DAILY FOR FOUR MORE DAYS Prov: ZACK MAURER MD 08/12/22 Pantoprazole Sodium (Pantoprazole Sodium) 40 Mg Tablet. 40 MG PO DAILY for GERD for 30 Days, #30 TAB 0 Refills Prov: ZACK MAURER MD 08/12/22 ZACK MAURER MD August 12, 2022 04:23
[2022-08-12 04:34] LABS: PROTHROMBIN TIME PATIENT 13.4 SEC (12.2-14.7)
[2022-08-12 04:43] LABS: ALANINE AMINOTRANSFERASE 29 U/L (0-55); ALKALINE PHOSPHATASE 176 U/L (40-136); BILIRUBIN,TOTAL 0.7 MG/DL (0.1-1.0); BUN/CREATININE RATIO 6; CALCIUM 9.4 MG/DL (8.5-10.1); CARBON DIOXIDE 23 MMOL/L (21-32); CHLORIDE 104 MMOL/L (98-107); CREATININE SERUM 1.09 MG/DL (0.60-1.30); EOSINOPHILS % (MANUAL) 1 %; GFR ESTIMATED 77; GLUCOSE 187 MG/DL (70-105); LIPASE 4 U/L (8-78); LYMPHOCYTES % (MANUAL) 16 %; MAGNESIUM 2.1 MG/DL (1.6-2.4); MONOCYTES % (MANUAL) 4 %; NEUTROPHILS % (MANUAL) 79 %; SODIUM 136 MMOL/L (135-145)
[2022-08-12] MEDS ORDERED: LIDOCAINE 2% VISCOUS 15 ML UDC PO ONE (05:00)
[2022-08-12] MEDS ORDERED: ANTACID SUSP 30 ML UDC (MYLANTA) PO ONE (05:00)
--- NOTE | 2022-08-12 06:03 | Diagnostic Imaging Report ---
HISTORY: Chest pain TECHNIQUE: Frontal view of the chest COMPARISON: 11/14/2021 FINDINGS: Lung volumes are normal. No consolidation is seen. There is no pleural effusion or pneumothorax. The cardiac silhouette is normal in size. IMPRESSION: 1. No acute pulmonary abnormality. Dictated by: Dictated on workstation # [id number]
[2022-08-12] MEDS ORDERED: AZIT250T12 PO (06:05)
[2022-08-12] MEDS ORDERED: PANT40TA52 PO (06:05)
[2022-08-12 06:45] VITALS: BP 138/76
== END 2022-08-12 06:45 | disposition home or self-care (01) ==
LOC: EDUNIT# 04:05 → ER FS 04:07
DX: R07.81 Pleurodynia (principal); R73.9 Hyperglycemia, unspecified; F17.210 Nicotine dependence, cigarettes, uncomplicated; Z88.0 Allergy status to penicillin; Z28.310 Unvaccinated for COVID-19
CPT/HCPCS: 36415; 71045; 80053; 83690; 83735; 83880; 84484; 85007; 85027; 85379; 85610; 85730; 93005; 93041

== ENCOUNTER → 2022-11-23 | Outpatient (CLI) | payer BC ==
--- NOTE | 2022-11-23 17:23 | Diagnostic Imaging Report ---
INDICATION: Severe shortness of breath and chest pain. COMPARISONS: 08/12/2022 FINDINGS: PA and lateral chest show senescent chest with emphysematous changes and chronic parenchymal changes. There are no consolidations. There is no effusion or pneumothorax. Cardiac contour is normal. Slight tortuosity of thoracic aorta. Soft tissues and bony thorax are normal. IMPRESSION: Slight senescent changes with COPD and chronic parenchymal changes but no evidence of acute cardiopulmonary disease. Dictated by: Dictated on workstation # [id number]
== END ==
LOC: RAD FS 16:24
PROVIDERS: ATTEND Registered Nurse Emergency
DX: J44.9 Chronic obstructive pulmonary disease, unspecified (principal); R06.00 Dyspnea, unspecified
CPT/HCPCS: 71046